=== PATIENT | female | born 1955 | race Caucasian/White ===

== ENCOUNTER 2017-01-15 18:12 | Emergency (ER) | payer BC ==
--- NOTE | 2017-01-16 19:21 | ER ---
ADMIT: 01/15/2017 RM/LOC: ER [facility] MR#: [id number] [address] [id number] SAADIAJESSICA BURTONMINDI Garcia [address] [place] [address] Emergency Room Report SEX: F AGE: 61 : 1955 DATE: 01/15/2017 The patient was signed out to me. Please refer to the main dictation for more information. The patient is a 61-year-old female with a past medical history of COPD, who was brought to the ER with chief complaint of chest pain and chest heaviness in the anterior right lower and left lower chest, which started an hour and a half ago and started during emotional distress and it was gradual in onset. In the ER, EKG did not show any ST changes and it had just inverted T in lead 3. Other than that, EKG was normal sinus rhythm. There were no acute Q- waves. There were no ST elevations or depressions. Cardiac enzymes are negative. D-dimer was mildly elevated. The patient has no swelling in the legs. When I saw the patient, the chest pain had completely resolved without any nitroglycerin. The patient already received aspirin p.o. CT of the chest did not show any pulmonary emboli. The patient is symptom free, and in no pain or distress. Has close followup with the primary doctor tomorrow morning at 02:00 p.m. The patient is stable and physical examination did not reveal any new symptoms or signs. The patient can be discharged to home. Return precautions, follow up with the primary doctor as needed and as scheduled. Omer Rollins MD/ uziel JOB #: [id number] CC: Cristopher Batista MD, Attending Physician Gamaliel Julien MD, Family Physician
== END 2017-01-15 22:00 | disposition home or self-care (01) ==
LOC: ER 18:12
DX: R07.9 Chest pain, unspecified (principal); J44.9 Chronic obstructive pulmonary disease, unspecified; Z79.82 Long term (current) use of aspirin